=== PATIENT | female | born 2000 | race Caucasian/White ===

== ENCOUNTER 2025-06-19 08:08 | Outpatient (CLI) | payer OTHER, SELFPAY | END 2025-06-19 08:09 | disposition home or self-care (01) | LOC: FRMREF 08:10 | PROVIDERS: PCP Nurse Practitioner Family; Visit Provider Nurse Practitioner Family | DX: Z13.1 Encounter for screening for diabetes mellitus (principal); Z13.6 Encounter for screening for cardiovascular disorders | CPT/HCPCS: 80061; 82947 ==